=== PATIENT | male | born 1985 | race Caucasian/White ===

== ENCOUNTER 2020-04-08 13:08 | Emergency (ER) | payer SELFPAY ==
[~2020-04-08] VITALS: Ht 182.9 cm; Wt 95.7 kg
[2020-04-08 13:17] VITALS: Ht 182.9 cm; Wt 95.7 kg
[2020-04-08 17:37] VITALS: BP 98/58
== END 2020-04-08 17:37 | disposition home or self-care (01) ==
LOC: ED 13:08
DX: S52.132A Displaced fracture of neck of left radius, initial encounter for closed fracture (principal); S20.212A Contusion of left front wall of thorax, initial encounter; W18.30XA Fall on same level, unspecified, initial encounter; Y93.89 Activity, other specified; Y92.89 Other specified places as the place of occurrence of the external cause; Y99.8 Other external cause status

== ENCOUNTER 2020-04-21 16:13 | Emergency (ER) | payer SELFPAY ==
[~2020-04-21] VITALS: Ht 182.9 cm; Wt 97.1 kg
[2020-04-21 16:28] VITALS: Ht 182.9 cm; Wt 97.1 kg
[2020-04-21 20:12] VITALS: BP 112/73
== END 2020-04-21 20:12 | disposition home or self-care (01) ==
LOC: ED 16:13
DX: S52.132D Displaced fracture of neck of left radius, subsequent encounter for closed fracture with routine healing (principal); R55 Syncope and collapse; X58.XXXD Exposure to other specified factors, subsequent encounter
CPT/HCPCS: Q0092